=== PATIENT | male | born 1965 | race Caucasian/White ===

== ENCOUNTER 2019-12-06 11:16 | Emergency (ER) | payer OTHER ==
[2019-12-06] MEDS ORDERED: Aspirin 81 MG Tab.Chew PO ONE (11:50)
[2019-12-06] MEDS ORDERED: LORazepam 2 MG/ML SDV IVPUSH ONE (11:51)
--- NOTE | 2019-12-06 11:54 | EDM.PDOC ---
ED HPI GENERAL MEDICAL PROBLEM - General Chief Complaint: General Stated Complaint: dizzy, disorenited Time Seen by Provider: 12/06/19 11:46 Source of Information: Reports: Patient, Family, RN Notes Reviewed History Limitations: Reports: No Limitations - History of Present Illness INITIAL COMMENTS - FREE TEXT/NARRATIVE: 54-year-old gentleman presents emergency department today complaint of chest pain, he admits he has a known history of anxiety does consume moderate amount of alcohol daily. States about 2 hours prior he describes a surge going through his chest denies any pain but felt short of breath brief wave nausea and increase in anxiety. No diaphoresis Chest Pain Score (Numeric/FACES): 1 - Related Data Allergies Allergy/AdvReac Type Severity Reaction Status Date / Time No Known Allergies Allergy Verified 12/06/19 11:38 Home Meds: Home Meds NK [No Known Home Meds] 12/06/19 [History] Past Medical History HEENT History: Reports: Impaired Vision Musculoskeletal History: Reports: Fracture Psychiatric History: Reports: Anxiety - Past Surgical History HEENT Surgical History: Reports: Oral Surgery GI Surgical History: Reports: Hernia Repair/Other Social & Family History - Tobacco Use Smoking Status *Q: Current Every Day Smoker Years of Tobacco use: 36 Packs/Tins Daily: 2 - Caffeine Use Caffeine Use: Reports: Coffee, Soda - Alcohol Use Days Per Week of Alcohol Use: 7 Number of Drinks Per Day: 12 Total Drinks Per Week: 84 - Recreational Drug Use Recreational Drug Use: No ED ROS GENERAL - Review of Systems Review Of Systems: See Below Constitutional: Denies: Diaphoresis HEENT: Reports: No Symptoms Respiratory: Reports: Shortness of Breath Cardiovascular: Reports: Chest Pain GI/Abdominal: Reports: No Symptoms : Reports: No Symptoms Musculoskeletal: Reports: No Symptoms Psychiatric: Reports: Anxiety ED EXAM, GENERAL - Physical Exam Exam: See Below Exam Limited By: No Limitations General Appearance: Alert, WD/WN, No Apparent Distress Head: Atraumatic, Normocephalic Neck: Normal Inspection, Supple, Non-Tender, Full Range of Motion Respiratory/Chest: No Respiratory Distress, Lungs Clear, Normal Breath Sounds, No Accessory Muscle Use, Chest Non-Tender Cardiovascular: Regular Rate, Rhythm, No Murmur GI/Abdominal: Soft, Non-Tender Course - Vital Signs Last Recorded V/S: Last Vital Signs Temp 97.7 F 12/06/19 11:37 Pulse 69 12/06/19 11:37 Resp 13 12/06/19 11:37 BP 151/96 H 12/06/19 11:37 Pulse Ox 96 12/06/19 11:37 - Orders/Labs/Meds Orders: Active Orders 24 hr Category Date Time Status Cardiac Monitoring [RC] .As Directed Care 12/06/19 11:50 Active EKG Documentation Completion [RC] ASDIRECTED Care 12/06/19 11:51 Active EKG 12 Lead [EK] Stat Ther 12/06/19 11:51 Ordered Labs: Laboratory Tests 12/06/19 12/06/19 12/06/19 Range/Units 12:08 12:08 12:08 WBC 5.8 (4.5-11.0) K/uL RBC 4.44 (4.30-5.90) M/uL Hgb 13.7 (12.0-15.0) g/dL Hct 41.4 (40.0-54.0) % MCV 93 (80-98) fL MCH 31 (27-31) pg MCHC 33 (32-36) % Plt Count 244 (150-400) K/uL Neut % (Auto) 69 H (36-66) % Lymph % (Auto) 19 L (24-44) % Kleberg % (Auto) 10 H (2-6) % Eos % (Auto) 2 (2-4) % Baso % (Auto) 0 (0-1) % Sodium 136 L (140-148) mmol/L Potassium 4.1 (3.6-5.2) mmol/L Chloride 101 (100-108) mmol/L Carbon Dioxide 25 (21-32) mmol/L Anion Gap 14.1 H (5.0-14.0) mmol/L BUN 17 (7-18) mg/dL Creatinine 0.8 (0.8-1.3) mg/dL Est Cr Clr Drug Dosing 107.28 mL/min Estimated GFR (MDRD) > 60 (>60) Glucose 93 (74-106) mg/dL Calcium 9.1 (8.5-10.1) mg/dL Total Bilirubin 0.4 (0.2-1.0) mg/dL AST 19 (15-37) U/L ALT 21 (12-78) U/L Alkaline Phosphatase 56 (46-116) U/L Troponin I < 0.017 (0.000-0.056) ng/mL Total Protein 7.4 (6.4-8.2) g/dL Albumin 3.9 (3.4-5.0) g/dL Globulin 3.5 (2.3-3.5) g/dL Albumin/Globulin Ratio 1.1 L (1.2-2.2) Urine Opiates Screen (NEGATIVE) Ur Oxycodone Screen (NEGATIVE) Urine Methadone Screen (NEGATIVE) Ur Propoxyphene Screen (NEGATIVE) Ur Barbiturates Screen (NEGATIVE) Ur Tricyclics Screen (NEGATIVE) Ur Phencyclidine Scrn (NEGATIVE) Ur Amphetamine Screen (NEGATIVE) U Methamphetamines Scrn (NEGATIVE) Urine MDMA Screen (NEGATIVE) U Benzodiazepines Scrn (NEGATIVE) U Cocaine Metab Screen (NEGATIVE) U Marijuana (THC) Screen (NEGATIVE) Ethyl Alcohol < 3 mg/dL 12/06/19 Range/Units 13:01 WBC (4.5-11.0) K/uL RBC (4.30-5.90) M/uL Hgb (12.0-15.0) g/dL Hct (40.0-54.0) % MCV (80-98) fL MCH (27-31) pg MCHC (32-36) % Plt Count (150-400) K/uL Neut % (Auto) (36-66) % Lymph % (Auto) (24-44) % Kleberg % (Auto) (2-6) % Eos % (Auto) (2-4) % Baso % (Auto) (0-1) % Sodium (140-148) mmol/L Potassium (3.6-5.2) mmol/L Chloride (100-108) mmol/L Carbon Dioxide (21-32) mmol/L Anion Gap (5.0-14.0) mmol/L BUN (7-18) mg/dL Creatinine (0.8-1.3) mg/dL Est Cr Clr Drug Dosing mL/min Estimated GFR (MDRD) (>60) Glucose (74-106) mg/dL Calcium (8.5-10.1) mg/dL Total Bilirubin (0.2-1.0) mg/dL AST (15-37) U/L ALT (12-78) U/L Alkaline Phosphatase (46-116) U/L Troponin I (0.000-0.056) ng/mL Total Protein (6.4-8.2) g/dL Albumin (3.4-5.0) g/dL Globulin (2.3-3.5) g/dL Albumin/Globulin Ratio (1.2-2.2) Urine Opiates Screen Negative (NEGATIVE) Ur Oxycodone Screen Negative (NEGATIVE) Urine Methadone Screen Negative (NEGATIVE) Ur Propoxyphene Screen Negative (NEGATIVE) Ur Barbiturates Screen Negative (NEGATIVE) Ur Tricyclics Screen Negative (NEGATIVE) Ur Phencyclidine Scrn Negative (NEGATIVE) Ur Amphetamine Screen Negative (NEGATIVE) U Methamphetamines Scrn Negative (NEGATIVE) Urine MDMA Screen Negative (NEGATIVE) U Benzodiazepines Scrn Negative (NEGATIVE) U Cocaine Metab Screen Negative (NEGATIVE) U Marijuana (THC) Screen Negative (NEGATIVE) Ethyl Alcohol mg/dL Meds: Medications Discontinued Medications Generic Name Dose Route Start Last Admin Trade Name Freq PRN Reason Stop Dose Admin Aspirin 324 mg 12/06/19 11:50 12/06/19 12:09 Aspirin PO 12/06/19 11:51 324 mg ONETIME ONE Administration Lorazepam 1 mg 12/06/19 11:51 12/06/19 12:05 Ativan IVPUSH 12/06/19 11:52 1 mg ONETIME ONE Administration Departure - Departure Time of Disposition: 13:21 Disposition: Home, Self-Care 01 Condition: Fair Clinical Impression: Panic attack - Discharge Information Referrals: PCP,None [Primary Care Provider] - Forms: ED Department Discharge Additional Instructions: Use Ativan as needed for anxiety symptoms, please followup with your primary care provider in 3-5 days if not better, please call return to the emergency department with worsening of symptoms. Sepsis Event Note - Evaluation Sepsis Screening Result: No Definite Risk - Focused Exam Vital Signs: Vital Signs Temp Pulse Resp BP Pulse Ox 12/06/19 11:37 97.7 F 69 13 151/96 H 96 12/06/19 11:35 97.7 F 69 13 151/96 H 96 Date Exam was Performed: 12/06/19 Time Exam was Performed: 13:20 - My Orders Last 24 Hours: My Active Orders 12/06/19 11:50 Cardiac Monitoring [RC] .As Directed 12/06/19 11:51 EKG Documentation Completion [RC] ASDIRECTED EKG 12 Lead [EK] Stat - Assessment/Plan Last 24 Hours: My Active Orders 12/06/19 11:50 Cardiac Monitoring [RC] .As Directed 12/06/19 11:51 EKG Documentation Completion [RC] ASDIRECTED EKG 12 Lead [EK] Stat Plan: Assessment Acuity = acute Site and laterality = panic attack Etiology = underlying generalized anxiety Manifestations = all symptoms now resolved Location of injury = Home Lab values = CBC, CMP, troponin, alcohol all within normal limits EKG demonstrates sinus rhythm chest x-ray shows no acute process Plan Good relief with the Ativan provided, prescription for written for Ativan 1 mg p.o. 3 times daily PRN total #10 follow-up primary care 3 to 5 days if not better This note was dictated using [employer] voice recognition software please call with any questions on syntax or grammar.
--- NOTE | 2019-12-06 13:15 | CRLCR ---
INDICATION: Chest pain TECHNIQUE: Chest 2 views. COMPARISON: None FINDINGS: Cardiovascular and mediastinum: Heart size and vasculature are normal in caliber and appearance. Mediastinum is within normal limits. Lungs and pleural spaces: Hyperinflation. Lungs are clear. No sign of infiltrate or mass. No sign of pleural effusion. No pneumothorax. Bones and soft tissues: No significant findings. IMPRESSION: No acute pulmonary or cardiac abnormalities. Hyperinflation. Dictated by Jacinto Garcia MD @ 12/06/2019 1:13:19 PM Dictated by: Jacinto Garcia MD @ 12/06/2019 13:13:26 (Electronically Signed)
== END 2019-12-06 13:44 | disposition home or self-care (01) ==
LOC: JP.ED 11:16
DX: F41.0 Panic disorder [episodic paroxysmal anxiety] (principal); F17.210 Nicotine dependence, cigarettes, uncomplicated
CPT/HCPCS: 36415; 71046; 80053; 80305; 80320; 84484; 85025; 93005; 96374; 99285; A9270; J2060; G0480

== ENCOUNTER 2020-11-22 10:31 | Emergency (ER) | payer OTHER ==
--- NOTE | 2020-11-22 11:12 | EDM.PDOC ---
ED HPI GENERAL MEDICAL PROBLEM - General Chief Complaint: ENT Problem Stated Complaint: LIMPH GLAND Time Seen by Provider: 11/22/20 10:56 Source of Information: Reports: Patient, RN Notes Reviewed History Limitations: Reports: No Limitations - History of Present Illness INITIAL COMMENTS - FREE TEXT/NARRATIVE: 55-year-old gentleman presents emergency department today complaint of swollen lymph nodes in his neck, he states he has had these on and off for about a year he follows with the OR for his primary care. States he is very anxious about these lymph nodes as he was doing a [employer] search which prompted his anxiety to go up and then presented to the emergency department for evaluation. He has not had any fevers no difficulty swallowing no shortness of breath no chest pain he does admit to losing weight but that is because he does not eat because of his anxiety. Does admit he was on citalopram a few years ago which did help he recently lost his 2 2 months ago and has been struggling coping with the loss - Related Data Allergies Allergy/AdvReac Type Severity Reaction Status Date / Time No Known Allergies Allergy Verified 11/22/20 10:43 Home Meds: Home Meds Aspirin [Halfprin] 81 mg PO DAILY 09/20/20 [History] Multivitamin [Multiple Vitamins] 1 tab PO DAILY 09/20/20 [History] Past Medical History HEENT History: Reports: Impaired Vision Musculoskeletal History: Reports: Fracture Other Musculoskeletal History: right hsoulder pain Neurological History: Reports: Concussion Psychiatric History: Reports: Anxiety - Infectious Disease History Infectious Disease History: Reports: Chicken Pox, Shingles - Past Surgical History Head Surgeries/Procedures: Reports: None HEENT Surgical History: Reports: Oral Surgery, Tonsillectomy GI Surgical History: Reports: Hernia Repair/Other Neurological Surgical History: Reports: None Musculoskeletal Surgical History: Reports: None Dermatological Surgical History: Reports: None Social & Family History - Tobacco Use Tobacco Use Status *Q: Current Every Day Tobacco User Years of Tobacco use: 30 Packs/Tins Daily: 1 Used Tobacco, but Quit: No Second Hand Smoke Exposure: Yes - Caffeine Use Caffeine Use: Reports: None - Alcohol Use Days Per Week of Alcohol Use: 7 Number of Drinks Per Day: 3 Total Drinks Per Week: 21 - Recreational Drug Use Recreational Drug Use: No ED ROS ENT - Review of Systems Review Of Systems: See Below Constitutional: Denies: Fever, Chills, Weakness, Fatigue HEENT: Reports: Other (Lymph nodes in the neck) Respiratory: Reports: No Symptoms Cardiovascular: Reports: No Symptoms GI/Abdominal: Reports: No Symptoms ED EXAM, ENT - Physical Exam Exam: See Below Exam Limited By: No Limitations General Appearance: Alert, Anxious Eye Exam: Bilateral Eye: Normal Inspection Nose: Normal Inspection, Normal Mucousa, No Blood Mouth/Throat: Normal Inspection, Normal Gums, Normal Lips, Normal Oropharynx, Other (Poor dentition) Head: Atraumatic, Normocephalic Neck: Normal Inspection, Full Range of Motion, Lymphadenopathy (R), Lymphadenopathy (L). No: Tender Lateral, Tender Midline, Thyromegaly Respiratory/Chest: No Respiratory Distress Course - Vital Signs Last Recorded V/S: Last Vital Signs Temp 98.1 F 11/22/20 10:45 Pulse 93 11/22/20 10:45 Resp 16 11/22/20 10:45 BP 144/91 H 11/22/20 10:45 Pulse Ox 97 11/22/20 10:45 Departure - Departure Time of Disposition: 11:10 Disposition: Home, Self-Care 01 Condition: Fair Clinical Impression: Lymphadenopathy of head and neck, Anxiety - Discharge Information Instructions: Lymphadenopathy, Managing Anxiety, Adult Referrals: Pattie Cooper MD [Primary Care Provider] - Additional Instructions: Recommend restarting the citalopram 1 tablet daily, please follow-up with your primary care in the next 7 to 10 days for further evaluation which may include consultation with ear nose and throat, call or return to the emergency department worsening symptoms Sepsis Event Note (ED) - Evaluation Sepsis Screening Result: No Definite Risk - Focused Exam Vital Signs: Vital Signs Temp Pulse Resp BP Pulse Ox 11/22/20 10:45 98.1 F 93 16 144/91 H 97 11/22/20 10:44 98.1 F 93 16 144/91 H 97 - Assessment/Plan Plan: Assessment Acuity = acute Site and laterality = lymphadenopathy Etiology = unknown Manifestations = none Location of injury = Home Lab values = none Plan After further discussion elected to treat his anxiety with citalopram which she has been on in the past prescription written for 20 mg tablet 1 tablet daily total #30 he is going to follow-up with his primary care for further evaluation of the lymphadenopathy This note was dictated using [employer] voice recognition software please call with any questions on syntax or grammar.
== END 2020-11-22 11:16 | disposition home or self-care (01) ==
LOC: JP.ED 10:31
DX: R59.0 Localized enlarged lymph nodes (principal); F41.9 Anxiety disorder, unspecified; F17.210 Nicotine dependence, cigarettes, uncomplicated; Z79.82 Long term (current) use of aspirin
CPT/HCPCS: 99283

== ENCOUNTER 2022-03-29 06:42 | Emergency (ER) | payer OTHER ==
[2022-03-29] MEDS ORDERED: Aspirin 81 MG Tab.Chew PO ONE (07:21)
[2022-03-29 08:06] LABS: TROPONIN I HIGH SENSITIVITY 9.5 pg/mL (<=60.3)
== END 2022-03-29 10:08 | disposition home or self-care (01) ==
LOC: JP.ED 06:42
DX: R07.89 Other chest pain (principal); Z72.0 Tobacco use
CPT/HCPCS: 36415; 71046; 71046-26; 80053; 83605; 84484; 85025; 93010; 99282; 99285-25; A9270-GY

== ENCOUNTER 2023-04-12 01:21 | Emergency (ER) | payer OTHER ==
[2023-04-12 01:48] LABS: BASOPHILS ABSOLUTE AUTO 0.06 K/uL (0.00-0.10); BASOPHILS PERCENT AUTO 0.7 % (0.1-1.3); EOSINOPHILS ABSOLUTE AUTO 0.14 K/uL (0.00-0.40); EOSINOPHILS PERCENT AUTO 1.6 % (0.0-5.4); HEMATOCRIT 40.5 % (38.4-49.7); HEMOGLOBIN 13.4 g/dL (12.9-16.9); IMMATURE GRAN ABSOLUTE AUTO 0.03 K/uL (0.00-0.23); IMMATURE GRAN PERCENT AUTO 0.3 % (0.0-0.7); LYMPHOCYTES ABSOLUTE AUTO 1.43 K/uL (0.8-3.3); LYMPHOCYTES PERCENT AUTO 16.1 % (11.4-47.7); MEAN CORPUSCULAR HEMOGLOBIN 32.4 pg (31.6-35.5); MEAN CORPUSCULAR HGB CONC 33.1 g/dL (31.6-35.5); MEAN CORPUSCULAR VOLUME 97.8 fL (81.4-99.0); MONOCYTES ABSOLUTE AUTO 0.77 K/uL (0.20-0.90); MONOCYTES PERCENT AUTO 8.7 % (3.3-12.6); NEUTROPHILS ABSOLUTE AUTO 6.47 K/uL (1.0-7.6); NEUTROPHILS PERCENT AUTO 72.6 % (40.0-78.1); PLATELET COUNT,PLT 218 K/uL (130-375); RED BLOOD CELL COUNT 4.14 M/uL (4.14-5.76); WHITE BLOOD CELL COUNT,WBC 8.9 K/uL (3.2-11.0)
[2023-04-12 02:08] LABS: CALCIUM 8.8 mg/dL (8.5-10.1); CREATININE 0.7 mg/dL (0.8-1.3); POTASSIUM,K 4.1 mmol/L (3.6-5.2); TROPONIN I HIGH SENSITIVITY 12.9 pg/mL (<=60.3)
[2023-04-12 02:10] LABS: ANION GAP 12.1 mmol/L (5.0-14.0); EST CRCL DRUG DOSING (CG) 106.82 mL/min
== END 2023-04-12 03:31 | disposition home or self-care (01) ==
LOC: JP.ED 01:21
DX: R00.2 Palpitations (principal); Z79.82 Long term (current) use of aspirin
CPT/HCPCS: 36415; 71045; 71045-26; 80048; 83605; 84484; 85025; 93005; 99285